=== PATIENT | female | born 1985 | race Caucasian/White ===

== ENCOUNTER 2019-04-10 12:09 | Observation (INO) | payer BC ==
[~2019-04-10] VITALS: Ht 165.1 cm; Wt 62.6 kg
[2019-04-10 12:17] VITALS: BP 125/77
--- NOTE | 2019-04-10 12:21 | NUR ---
PT AMBULATED TO ER BED 12
--- NOTE | 2019-04-10 12:42 | NUR ---
34 Y/O F PRESENTS TO ER C/O LEFT SIDED SUPRAPUBIC PAIN. PT LMP 02/20/19. PT SEEN OBGYN YESTERDAY AND DX WITH ECTOPIC AND NEEDS SURGERY. PT . LMP 01/23/19. PAIN LEVEL 4/10, SHARP COMES AND GOES. AREA TENDER TO TOUCH. PT HAS VAGINAL BLEEDING, SPOTTING. DENIES VAGINAL DISCHARGE. NKA. MED HX: ASTHMA. SAFETY MEASURES IN PLACE. ERMD AT BEDSIDE.
--- NOTE | 2019-04-10 12:43 | NUR ---
ER AT BEDSIDE
--- NOTE | 2019-04-10 13:50 | NUR ---
LAB AT BEDSIDE
[2019-04-10 14:22] LABS: BASOPHILS % (AUTO) 0.3 % (0.0-2.0); EOSINOPHILS # (AUTO) 0.1 K/uL (0-0.4); EOSINOPHILS % (AUTO) 0.9 % (0.0-4.0); HEMATOCRIT 38.8 % (36-48); HEMOGLOBIN 12.9 g/dL (12.0-16.0); LYMPHOCYTES # (AUTO) 1.5 K/uL (2.5-16.5); LYMPHOCYTES % (AUTO) 20.6 % (20.5-51.1); MEAN CORPUSCULAR HEMOGLOBIN 30 pg (27-31); MEAN CORPUSCULAR HGB CONC 33 g/dL (33-37); MEAN CORPUSCULAR VOLUME 90.1 fL (80-94); MONOCYTES # (AUTO) 0.4 K/uL (0.8-1.0); MONOCYTES % (AUTO) 5.9 % (1.7-9.3); NEUTROPHILS # (AUTO) 5.2 K/uL (1.8-7.7); NEUTROPHILS % (AUTO) 72.3 % (42.2-75.2); PLATELET COUNT (AUTO) 267 K/uL (140-450); RED CELL DISTRIBUTION WIDTH 13.1 % (11.6-13.7); WHITE BLOOD COUNT (AUTO) 7.2 K/uL (4.8-10.8)
--- NOTE | 2019-04-10 14:30 | NUR ---
PT RESTING IN BED WITH BOYFRIEND AT BEDSIDE. NO CONCERNS AT THIS TIME. WILL CONTINUE TO MONITOR.
[2019-04-10] MEDS ORDERED: NACL 0.9% 1,000 ML IV SCH (14:43)
[2019-04-10 14:46] LABS: ANION GAP 12.9 (8-16); CARBON DIOXIDE 25.7 mmol/L (21-32); CREATININE 0.7 mg/dL (0.6-1.3); POTASSIUM 3.6 mmol/L (3.5-5.1)
--- NOTE | 2019-04-10 15:23 | NUR ---
Patient will be admitted to care of Dr. Esqueda. Admited to [facility]. Will go to room 105A. Belongings list completed. Report to GOKUL Cavazos. Addendum: 04/10/19 at 1838 by [email or web address] GOKUL DENNY
--- NOTE | 2019-04-10 15:23 | NUR ---
Transfer of care and report given to GOKUL Cavazos. Addendum: 04/10/19 at 1838 by CHRISTOPHER GOKUL DENNY
--- NOTE | 2019-04-10 15:30 | NUR ---
Pt admitted to room 105A from ED via gurney. Able to amb to bed with steady gait. Left AC IV intact & patent. Report received from ED nurse Laura. Pt aaox4, oriented to room & unit, verbalized understanding. Spouse at bedside. Call light within reach.
[2019-04-10 16:00] VITALS: BP 114/64
[2019-04-10] MEDS ORDERED: INFLUENZA VACCINE QUAD 0.5 ML SYR IMVAC PRN (18:00)
--- NOTE | 2019-04-10 18:00 | NUR ---
Pt resting in bed, no c/o discomfort at this time, no signs of distress. Left AC IV intact with ongoing NS @ 100ml/hr. Call light within reach. Spouse at bedside.
--- NOTE | 2019-04-10 18:35 | NUR ---
REPORT RECEIVED FROM GOKUL DENNY. PATIENT IN STABLE CONDITION, NPO, WAITING FOR PROCEDURE WITH DR. WINTERS. WILL CONTINUE TO MONITOR PATIENT.
--- NOTE | 2019-04-10 19:05 | NUR ---
DR. WINTERS CALLED, PATIENT'S PROCEDURE WILL BE DELAYED UNTIL 1999. PATIENT AND FAMILY MEMBERS AWARE. WILL ENDORSE TO FOREPART LASTER RN.
--- NOTE | 2019-04-10 19:10 | NUR ---
REPORT GIVEN TO MICROFILM PROCESSOR NURSE AT BEDSIDE FOR CONTINUITY OF CARE. FAMILY AT BEDSIDE. PATIENT IN STABLE CONDITION.
--- NOTE | 2019-04-10 19:10 | NUR ---
RECEIVED REPORT AT BEDSIDE FORM JARED RN DAYSHIFT AT BEDSIDE FOR CONTINUITY OF CARE, PT IN STABLE CONDITION.
[2019-04-10 20:00] VITALS: BP 109/67
--- NOTE | 2019-04-10 20:00 | NUR ---
PT IN BED SHE IS AOX4 SKIN INTACT WITH 22G IV SITE ON LEFT AC RUNNING N/S AT 100MLS/HR. PT DENIES PAIN AT THIS TIME. V/S FOLLOWS T 97.3 P 64 R 18 B/P 109/67 02 97% ON ROOM AIR. BED LOW SIDE RAILS UP AND CALL ROJAS IN REACH. FAMILY AT BEDSIDE.
--- NOTE | 2019-04-10 20:30 | NUR ---
OR NURSE VIV HERE TO TRANSPORT PT TO OR. PT TRANSPORTED BY BED OFF UNIT .
[2019-04-10] MEDS ORDERED: ROCURONIUM 50 MG/5 ML VIAL IV ONE (20:37)
[2019-04-10] MEDS ORDERED: DEXAMETHASONE 4 MG/ML VIAL IVP ONE (20:37)
[2019-04-10] MEDS ORDERED: SUCCINYLCHOLINE CHLORIDE 200 MG/10 ML VIAL IV ONE (20:37)
[2019-04-10] MEDS ORDERED: LIDOCAINE 2% 100 MG/5 ML SYR IVP ONE (20:37)
[2019-04-10] MEDS ORDERED: PROPOFOL 200 MG/20 ML VIAL IV ONE (20:37)
[2019-04-10] MEDS ORDERED: DESFLURANE 240 ML BTL INH ONE (20:37)
[2019-04-10] MEDS ORDERED: KETOROLAC 30 MG/ML VIAL IVP ONE (20:37)
[2019-04-10] MEDS ORDERED: fentaNYL 0.05 MG/ML VIAL ONE (20:41)
[2019-04-10] MEDS ORDERED: MIDAZOLAM 2 MG/2 ML VIAL ONE (20:41)
[2019-04-10] MEDS ORDERED: BUPIVACAINE-MPF/EPI 0.5% 30 ML VIAL INJ ONE (20:51)
[2019-04-10] MEDS ORDERED: HYDROmorphone 1 MG/ML AMP IVP PRN (21:05)
[2019-04-10] MEDS ORDERED: ONDANSETRON 4 MG/2 ML VIAL IVP PRN (21:05)
[2019-04-10] MEDS: NACL 0.9% 1,000 ML IV SCH (22:20)
[2019-04-10] MEDS ORDERED: IBUPROFEN 800 MG TAB PO PRN (22:20)
[2019-04-10] MEDS ORDERED: oxyCODONE/APAP 5/325 MG 1 TAB TAB PO PRN (22:20)
--- NOTE | 2019-04-10 23:00 | NUR ---
PT RETURNED TO UNIT VIA BED BY SANDRITA, OR NURSES, REPORT GIVEN AT BEDSIDE FORM DENISSE RN OR NURSE. PT IS AOX4, SHE HAS 3 SMALL AREA OF SUTURES COVERED WITH STERI STRIPS. NO REDNESS , BLEEDING OR DRAINAGE NOTED. V/S FOLLOWS T 97.7 P 64 R 18 B/P 110/65 02 96% ON ROOM AIR. PT C/O OF 6/7 OUT OF 10, PT WANTED MOTRIN TO RELIEVE PAIN. PT ALSO C/O OF NAUSEA AND WAS GIVEN IVP ZOFRAN. AT BEDSIDE.
--- NOTE | 2019-04-10 23:15 | NUR ---
PT IN STABLE CONDITION V/S FOLLOWS T 97.1 P 65 R 18 B/P 103/59 02 97% ON ROOM AIR.
--- NOTE | 2019-04-10 23:30 | NUR ---
PT IN STABLE CONDITION SLEEPY BUT AROUSABLE TO NAME AND LIGHT TOUCH. V/S FOLLOWS T 97.3 P 64 R 18 B/P 109/67 02 98% ON ROOM AIR . LEFT BEDSIDE.
--- NOTE | 2019-04-10 23:45 | NUR ---
PT IN BED SLEEPING BUT AROUSABLE TO TOUCH, PT DENIES PAIN AT THIS TIME, V/S FOLLOWS T 98.4 P 64 R 18 B/P 104/54 02 97%. BED LOW SIDE RAILS UP AND CALL ROJAS IN REACH.
[2019-04-11] VITALS: BP 108/62
--- NOTE | 2019-04-11 00:15 | NUR ---
PT IN BED SLEEPING BUT AROUSABLE TO LIGHT TOUCH, V/S FOLLOWS T 98.0 P 62 R 18 B/P 108/62 02 97% ON ROOM AIR.
--- NOTE | 2019-04-11 00:30 | NUR ---
PT IN BED AROUSABLE TO LIGHT TOUCH, NO C/O VOICED AT THIS TIME AND CALL ROJAS IN REACH. V/S FOLLOWS T 97.9 P 64 R 18 B/P 110/66 02 98% ON ROOM AIR.
--- NOTE | 2019-04-11 02:42 | NUR ---
PT AMBULATE TO TOILET WITH A STEADY GAIT.
--- NOTE | 2019-04-11 06:00 | NUR ---
PT GIVEN PERCOCET FOR SEVERE PAIN IN ABDOMEN DRESSING IN TACT, PT IN STABLE CONDITION.
--- NOTE | 2019-04-11 06:44 | NUR ---
PATIENT HAS BEEN SCREENED AND CATEGORIZED LOW NUTRITION RISK. PATIENT WILL BE SEEN WITHIN 7 DAYS OF ADMISSION. 04/17/19 GEORGINA KIMBALL MS, RDN
--- NOTE | 2019-04-11 07:30 | NUR ---
Received report from car shifter nurse. Pt resting in bed. No C/O pain. Call light in reach
[2019-04-11 08:00] VITALS: BP 95/47
[2019-04-11] MEDS: NACL 0.9% 1,000 ML IV SCH (08:50)
[2019-04-11] MEDS ORDERED: HYDROCORTISONE 1% CRM 30 GM TUBE TP PRN (09:20)
--- NOTE | 2019-04-11 09:30 | NUR ---
Pt in bed with family by bedside. No C/O pain. Call light in reach.
--- NOTE | 2019-04-11 10:40 | NUR ---
Verbal & written discharge instructions provided to pt & spouse, verbalized understanding. Left AC IV removed, catheter intact, site with no bleeding covered with dry gauze & band-aid. Per Dr Esqueda, prescription for pain med sent electronically to her preferred pharmacy, pt verbalized understanding. Pt left unit via wheelchair with spouse for discharge to home. Name band removed. All belongings with pt upon departure.
== END 2019-04-11 10:40 | disposition home or self-care (01) ==
LOC: MED 12:09 → MTU 14:43
PROVIDERS: ADMIT Obstetrics & Gynecology; ATTEND Obstetrics & Gynecology
DX: O00.90 Unspecified ectopic pregnancy without intrauterine pregnancy (principal); O26.891 Other specified pregnancy related conditions, first trimester; R10.9 Unspecified abdominal pain; Z3A.11 11 weeks gestation of pregnancy
CPT/HCPCS: 36415; 59151; 76817; 80048; 84702; 85025; 86886; 86900; 86901; 87081; 90686; 96374; 99285; G0378; J0330; J1100; J1885; J2001; J2250; J2405; J2704; J3010; J3490; J7030; Q0092; 88305